=== PATIENT | male | born 1985 | race Caucasian/White ===

== ENCOUNTER 2020-06-15 06:11 | Emergency (ER) | payer OTHER ==
[2020-06-15] MEDS ORDERED: BACTRIM 400-801 EACH PO (09:24)
[2020-06-15] MEDS ORDERED: CEPHALEXIN500 MG PO (09:24)
== END 2020-06-15 10:00 | disposition home or self-care (01) ==
LOC: ER1 06:11
DX: M86.8X4 Other osteomyelitis, hand (principal); L03.012 Cellulitis of left finger
CPT/HCPCS: 26010; 87070; 87077; 87186; 87205; 99283